=== PATIENT | female | born 1980 | race Caucasian/White ===

== ENCOUNTER → 2018-01-04 13:38 | Outpatient (CLI) | payer OTHER, SELFPAY ==
--- NOTE | 2018-01-04 13:41 | DI.US.S_ITS ---
PROCEDURE: US EXTREMITY NONVASC LOWER LT INDICATIONS: FOOT PAIN; POSSIBLE SOLIS'S NEUROMA TECHNIQUE: Real-time scanning was performed of the left inferior distal foot, with image documentation. COMPARISON: None. FINDINGS: Avascular, hypoechoic structures seen corresponding to the palpable abnormality within the left anterior distal foot region measuring 1.1 x 0.3 x 0.2 cm. IMPRESSION: Avascular hypoechoic soft tissue mass present corresponding to the palpable abnormality. Findings are nonspecific. If indicated, MRI without and with contrast could be performed for further characterization and localization (assuming that there is no contraindication). Dictated by: David CROSS Interpreted: Demetrius Feliciano MD on 01/04/2018 at 15:01 Approved by: Demetrius Feliciano M.D. on 01/04/2018 at 15:20
== END ==
PROVIDERS: Family Provider Family Medicine; PCP Family Medicine; Visit Provider Nurse Practitioner Family
DX: M79.672 Pain in left foot (principal); G57.62 Lesion of plantar nerve, left lower limb
CPT/HCPCS: 76882

== ENCOUNTER → 2018-01-19 10:49 | Outpatient (CLI) | payer OTHER, SELFPAY ==
[2018-01-19 12:06] LABS: BUN Creatinine Ratio 15.7 (6-22); Blood Urea Nitrogen 11 mg/dL (7-17); Estimated Glomerular Filt Rate > 60.0 mL/min (>60)
== END ==
PROVIDERS: Family Provider Family Medicine; PCP Family Medicine; Visit Provider Nurse Practitioner Family
DX: Z01.812 Encounter for preprocedural laboratory examination (principal)
CPT/HCPCS: 36415; 82565; 84520

== ENCOUNTER → 2018-01-26 17:04 | Outpatient (CLI) | payer OTHER, SELFPAY ==
--- NOTE | 2018-01-26 17:09 | DI.MRI.S_ITS ---
PROCEDURE: MR FOOT LT WO/W CON INDICATIONS: MOCTEZUMA'S NEUROMA LEFT FOOT TECHNIQUE: Noncontrast long-axis T1 spin echo and T2 fast spin echo with fat saturation, short-axis T1 spin echo with and without fat saturation, and short-axis T2 fast spin echo with fat saturation. After the administration of contrast, short-axis T1 spin echo with fat saturation through the forefoot. COMPARISON: [facility] [place], CR, XR FOOT 3+ VIEWS LEFT, 01/19/2018, 10:32. FINDINGS: Image quality: Excellent. Bones and joints: No bone marrow contusions or metatarsal stress fractures. The sesamoid bones appear in expected positions, without internal edema. No metatarsophalangeal joint degeneration. No intraosseous lesions. Soft tissues: No enhancing lesions between the metatarsal heads to suggest Moctezuma's neuromas. There is mild fluid between the first and second metatarsal heads raising possibility of low-grade bursitis. There is signal change involving the plantar soft tissues of the forefoot at the level of the second metatarsal head with T2 hyperintensity and minimal if any enhancement. There is also mild subcutaneous edema overlying the dorsal aspect of the second and third metatarsals. Marginal T2 hyperintensity involving the fifth metatarsal head however no definite enhancement. Mild posterior tibialis tenosynovitis and visualized hindfoot. IMPRESSION: Prominent signal change/edema involving the plantar soft tissues at the level of the second metatarsal head, with relatively absent enhancement. The appearance is nonspecific although differential includes infection, perineural fibrosis (such as ill-defined or atypical Moctezuma's neuroma), or developing adventitial bursitis. The flexor tendons appear grossly intact. Please correlate clinically. A discrete enhancing mass lesion is not seen. Low-grade intermetatarsal bursitis between the first and second metatarsal heads. Dictated by: Vinay Landaverde M.D. on 01/27/2018 at 9:59 Approved by: Vinay Landaverde M.D. on 01/27/2018 at 10:29
== END ==
PROVIDERS: Family Provider Family Medicine; PCP Family Medicine; Visit Provider Nurse Practitioner Family
DX: G57.62 Lesion of plantar nerve, left lower limb (principal); M77.52 Other enthesopathy of left foot and ankle
CPT/HCPCS: 73720; A9579

== ENCOUNTER → 2019-04-07 15:30 | Outpatient (CLI) | payer OTHER, SELFPAY ==
[2019-04-07 16:04] LABS: Add Manual Diff / Slide Review NO; Basophils Absolute Auto 0 /uL (0-100); Basophils Percent Auto 0.5 % (0-2); Eosinophils Absolute Auto 100 /uL (0-450); Eosinophils Percent Auto 0.9 % (2-4); Hematocrit 42.3 % (36-46); Hemoglobin 14.4 g/dL (12.0-16.0); Lymphocytes Absolute Auto 1400 /uL (1100-4500); Mean Corpuscular Hemoglobin 30.6 PG (26-34); Mean Corpuscular Volume 90.1 fL (80-100); Monocytes Absolute Auto 500 /uL (0-900); Monocytes Percent Auto 5.9 % (3-14); Neutrophils Absolute Auto 7000 /uL (1500-7000); Neutrophils Percent Auto 77.7 % (50-75); Platelet Count 240 X10^3/uL (150-400); Red Cell Distribution Width 13.3 % (11.6-14.8)
[2019-04-07 16:55] LABS: Alanine Aminotransferase 37 IU/L (<35); Albumin 4.8 g/dL (3.5-5.0); Albumin Globulin Ratio 1.8 (1.0-2.8); Alkaline Phosphatase 64 U/L (38-126); Aspartate Aminotransferase 27 IU/L (14-36); BUN Creatinine Ratio 16.3 (6-22); Bilirubin Total 0.8 mg/dL (0.2-1.3); Blood Urea Nitrogen 13 mg/dL (7-17); Calcium 9.9 mg/dL (8.4-10.2); Carbon Dioxide 30 mmol/L (22-32); Chloride 105 mmol/L (98-107); Estimated Glomerular Filt Rate > 60.0 mL/min (>60); Globulin 2.6 g/dL (1.7-4.1); Glucose 104 mg/dL (70-100); HEMOLYSIS < 15 (0-50); Potassium 4.5 mmol/L (3.4-5.1); Sodium 145 mmol/L (137-145); Total Protein 7.4 g/dL (6.3-8.2)
[2019-04-07 17:24] LABS: TSH w/ Reflex to FT4 1.38 uIU/mL (0.47-4.68)
== END ==
PROVIDERS: PCP Family Medicine; Visit Provider Family Medicine
DX: R49.0 Dysphonia (principal)
CPT/HCPCS: 36415; 80053; 84443; 85025

== ENCOUNTER → 2020-02-02 10:44 | Outpatient (CLI) | payer OTHER, SELFPAY ==
[2020-02-02 12:29] LABS: Erythrocyte Sedimentation Rate 5 MM/HR (0-20)
[2020-02-02 13:14] LABS: C-Reactive Protein Quant 1.1 mg/dL (<1.0); Rheumatoid Factor < 8.6 IU/mL (<12.0); Uric Acid 4.6 mg/dL (2.5-6.2)
[2020-02-03 14:29] LABS: SS A Ro Sjogrens Antibody < 0.2 AI (0.0-0.9); SS B La Sjogrens Antibody < 0.2 AI (0.0-0.9)
[2020-02-03 15:46] LABS: ANA Screen, IFA Negative (.)
[2020-02-05 08:07] LABS: Dilute Russell Viper Venom 57.1 sec (0.0-47.0); Dilute Russell Viper Venom Mix 41.8 sec (0.0-47.0); Lupus Reflex Interpretation Comment: (.); PTT-LA 34.8 sec (0.0-51.9)
[2020-02-07 15:36] LABS: HLA B27 Negative (.)
== END ==
PROVIDERS: PCP Family Medicine; Referring Provider Podiatrist; Visit Provider Podiatrist
DX: M79.672 Pain in left foot (principal)
CPT/HCPCS: 36415; 81374; 84550; 85598; 85613; 85651; 86038; 86140; 86235; 86430

== ENCOUNTER → 2020-03-12 17:07 | Outpatient (CLI) | payer OTHER, SELFPAY ==
--- NOTE | 2020-03-12 17:11 | DI.MG.S_ITS ---
BILATERAL DIGITAL SCREENING MAMMOGRAM 3D/2D WITH CAD: 03/12/2020 CLINICAL: Routine screening. Baseline exam. No prior exams were available for comparison. The tissue of both breasts is heterogeneously dense. This may lower the sensitivity of mammography. Current study was also evaluated with a Computer Aided Detection (CAD) system. No significant masses, calcifications, or other findings are seen in either breast. IMPRESSION: NEGATIVE There is no mammographic evidence of malignancy. A 2 year screening mammogram is recommended. This exam was interpreted at Station ID: [id number]. NOTE: For mammograms, a report in lay terms will be sent to the patient. Approximately 15% of breast malignancies will not be visualized mammographically. In the management of a palpable breast mass, a negative mammogram must not discourage biopsy of a clinically suspicious lesion. Electronically Signed By: Cayla thakkar/vitaly:03/20/2020 11:01:12 letter sent: Normal Exam ACR BI-RADS Category 1: Negative 3341F
== END ==
PROVIDERS: Family Provider Family Medicine; PCP Family Medicine; Referring Provider Family Medicine; Visit Provider Family Medicine
DX: Z12.31 Encounter for screening mammogram for malignant neoplasm of breast (principal)
CPT/HCPCS: 77063; 77067

== ENCOUNTER → 2020-10-30 11:52 | Outpatient (CLI) | payer OTHER, SELFPAY ==
[2020-10-30 13:45] LABS: TSH w/ Reflex to FT4 2.11 uIU/mL (0.47-4.68)
== END ==
PROVIDERS: Family Provider Family Medicine; PCP Family Medicine; Referring Provider Family Medicine; Visit Provider Family Medicine
DX: F31.81 Bipolar II disorder (principal)
CPT/HCPCS: 36415; 84443

== ENCOUNTER → 2021-03-07 12:40 | Outpatient (CLI) | payer OTHER, SELFPAY | PROVIDERS: Family Provider Family Medicine; PCP Family Medicine; Visit Provider Physician Assistant | DX: N34.3 Urethral syndrome, unspecified (principal) | CPT/HCPCS: 87086 ==

== ENCOUNTER → 2021-06-10 10:18 | Outpatient (CLI) | payer OTHER, SELFPAY ==
[2021-06-10 10:59] LABS: COVID19 -Nasal RAPID Negative (Negative)
== END ==
PROVIDERS: Family Provider Family Medicine; PCP Family Medicine; Visit Provider Obstetrics & Gynecology
DX: Z01.812 Encounter for preprocedural laboratory examination (principal); Z20.822 Contact with and (suspected) exposure to COVID-19
CPT/HCPCS: 87635

== ENCOUNTER 2021-06-11 08:29 | Day surgery (SDC) | payer OTHER, SELFPAY ==
[2021-06-11] MEDS: ACETAMINOPHEN 325 MG TABLET 975 MG PO (08:56)
[2021-06-11] MEDS: GABAPENTIN 300 MG CAPSULE PO (08:57)
[2021-06-11] MEDS: SCOPOLAMINE 1 PATCH TOP (08:57)
[2021-06-11 09:12] VITALS: BP 133/86; PULSE 70; RESP 16; TEMP 36.9; O2SAT 100; BMI 34.4
[2021-06-11] MEDS: LACTATED RINGERS 1,000 ML 42 ML IV (09:33)
--- NOTE | 2021-06-11 12:47 | SUR.PREOP ---
Pt discharged home at 1250 case cancelled , IV taken out, and will follow up with pt to reschedule.
== END 2021-06-11 08:30 | disposition home or self-care (01) ==
LOC: OR 08:30
PROVIDERS: Family Provider Family Medicine; PCP Family Medicine; Referring Provider Obstetrics & Gynecology; Visit Provider Obstetrics & Gynecology
DX: Z53.9 Procedure and treatment not carried out, unspecified reason (principal)
CPT/HCPCS: 57260; J2250; J2704

== ENCOUNTER → 2021-07-01 15:49 | Outpatient (CLI) | payer OTHER, SELFPAY ==
[2021-07-01 17:39] LABS: COVID19 -Nasal RAPID Negative (Negative)
== END ==
PROVIDERS: Family Provider Family Medicine; PCP Family Medicine; Visit Provider Obstetrics & Gynecology
DX: Z01.812 Encounter for preprocedural laboratory examination (principal); Z20.822 Contact with and (suspected) exposure to COVID-19
CPT/HCPCS: 87635

== ENCOUNTER 2021-07-02 06:28 | Day surgery (SDC) | payer OTHER, SELFPAY ==
[2021-06-27 07:54] VITALS: BMI 35.8
[2021-07-02] VITALS (11 sets, daily range): BP systolic 91–141; BP diastolic 34–88; PULSE 63–87; RESP 10–18; TEMP 36.3–37.3; O2SAT 91–99; BMI 35.8
[2021-07-02] MEDS: LACTATED RINGERS 1,000 ML 42 ML IV (06:54)
[2021-07-02] MEDS: ACETAMINOPHEN 325 MG TABLET 975 MG PO (07:34)
[2021-07-02] MEDS: SCOPOLAMINE 1 PATCH TOP (07:48)
[2021-07-02] MEDS: APREPITANT 40 MG CAPSULE PO (07:48)
--- NOTE | 2021-07-02 07:52 | PM.PREOP ---
Pre-operative Note COVID-19 COVID-19 status: Negative Result date/Date tested (Pos, Neg/Pending): 07/01/21 Criteria for continued procedure: Non-surgical alternatives not available or appropriate per current SOC Interval Note History & Physical reviewed/Exam performed by Physician: Yes Changes to H&P: No H&P completed within 30 days and has changed as indicated here:: 06/04/21
--- NOTE | 2021-07-02 08:24 | SUR.OPER ---
Lithotomy on padded OR bed, head on pillow, arms secured on padded arm boards at <90 degrees abduction. Legs secured in padded yellow fins stirrups.
[2021-07-02] MEDS: CLINDAMYCIN 900 MG/50 ML PIGGYBACK 50 MG IV (08:50)
[2021-07-02] MEDS: BUPIVACAINE 0.25% (PF) 30 ML, EPINEPHrine 0.15 MG INJ (09:02)
--- NOTE | 2021-07-02 10:05 | P.OP_ITS ---
Operative Date/Time/Diagnoses Date of procedure: 07/02/21 Time of procedure: 10:05 Pre-op diagnosis: Symptomatic cystocele and rectocele Symptomatic vaginal vault prolapse Post-op diagnosis: same Procedure & Clinicians Procedure: Procedures Operation Date: 07/02/21 07:45 Actual Procedure Side Surgeon p Anterior/Posterior Repair, sacrospinous ligament fixation Arabella Boyd MD Indications: Symptomatic cystocele and rectocele Symptomatic vaginal vault prolapse Surgeon: Arabella Boyd Experience Designer: Kandace Johnson Anesthesia Type: General and Local Operative Notes Findings: Third-degree cystocele Third-degree rectocele Third-degree vaginal vault prolapse Closure Type: primary Specimen(s): none Applied: catheter (To continuous drainage) and other (Vaginal packing) Estimated blood loss (mL): 50 Blood products transfused: none Procedure in detail: The patient was taken to the operating room where she was placed in the dorsal supine position. After adequate LMA general anesthesia was achieved, she was placed in the dorsal lithotomy position, and prepped and draped in the usual sterile fashion. Allis clamps were placed at the apex of the cystocele. 6 mL of half percent Marcaine with epinephrine were injected and an incision was made with a #10 blade between the 2 Allis clamps. Wide Allis clamps were placed on the midline of the cystocele approximately 5. 6 cc of 0.5% Marcaine with epinephrine were injected submucosally on either side of the midline. The mucosa was undermined using the Metzenbaum scissors and the mucosa incised in the midline moving the wide Allis clamps to the edges of the mucosa. The mucosa was dissected off the underlying fascia using an open moistened Ray-Ramon and a #10 blade. The fascia was reapproximated with 0 Vicryl with a series of horizontal mattress sutures. The excess vaginal mucosa was excised. The mucosa was closed using simple interrupted sutures with 2-0 Vicryl including the underlying fascia to close the space. The weighted speculum was removed from the vagina. Allis clamps were placed at the mucocutaneous junction at the introitus. 6 mL of half percent Marcaine with epinephrine were injected. An incision was made with a #10 blade between the 2 Allis clamps, and a triangular piece of skin and underlying subcutaneous tissue was removed. Allis clamps were placed in the midline of the rectocele. 10 mL of half percent Marcaine with epinephrine were injected submucosally. The mucosa was undermined using the Metzenbaum scissors and the mucosa incised in the midline, moving the wide Allis clamps to the m ucosal edges. The underlying fascia was dissected off of the mucosa using an open moistened Ray-Ramon and a #10 blade. The space surrounding the sacral spinous ligament was dissected out bluntly using 2 fingers. The sacral spinous ligament was identified. Using the Capio needle with 2 0 PDS, a stitch was placed 2 finger breaths away from the ischial spine into the sacral spinous ligament. This was then taken through the vaginal mucosa without going through full-thickness mucosa at the apex of the rectocele. This was tagged with a hemostat. The first 3 sutures reapproximating the fascia with 0 Vicryl were placed. The excess vaginal mucosa was excised. The first 2 sutures were placed on the mucosa using 2-0 vicryl including the underlying fascia to close the deadspace. The SSL suture was tied down, pulling the apex of the vagina posteriorly. The remainder of the mucosa was closed using 2 0 Vicryl with simple interrupted sutures, including the underlying fascia to close the s pace. On the perineum 0 Vicryl was used to reapproximate the levator muscle. The subcutaneous layer was closed with 2-0 Vicryl. The skin was closed with 3-0 chromic in a subcuticular fashion. Hemostasis was achieved. A Betadine moistened vaginal pack was placed into the vagina. A rectal exam was done and there were no sutures palpable in the rectum. The urine was clear. Sponge, lap, and instrument counts were correct ?-2. The patient tolerated the procedure well, was taken to PACU in stable condition. Complications: none Post-operative Condition: stable Disposition: PACU Plan for aftercare: To acute care after recovery
[2021-07-02] MEDS: OXYCODONE IR 5 MG TABLET PO (10:56)
--- NOTE | 2021-07-02 11:25 | PC.NURSE ---
Addendum entered by Josette Mishra R.N. 07/02/21 16:23: Patient denies pain, she is resting and tolerated her lunch. Resting comfortably. Addendum entered by Josette Mishra R.N. 07/02/21 12:58: Patient denies pain, she is eating her lunch and tolerating this well. Original Note: Patient up to floor around 1115- She had an a&p repair with mccall and packing present. Kristi pad in place with minimal bleeding. Given oxycodone post operatively and patient has a scope patch to the back of her r.ear. at bedside.
[2021-07-02] MEDS: ACETAMINOPHEN 325 MG TABLET 650 MG PO ×3 (11:35→22:56)
[2021-07-02] MEDS: LACTATED RINGERS 1,000 ML 100 ML IV ×2 (11:35→21:06)
[2021-07-02] MEDS: KETOROLAC 30 MG/ML VIAL IV ×3 (11:36→22:57)
[2021-07-02 12:24] LABS: Estimated Glomerular Filt Rate > 60.0 mL/min (>60)
[2021-07-02] MEDS: hydrOXYzine pamoate 25 MG CAPSULE PO (20:42)
[2021-07-02] MEDS: DOCUSATE 100 MG CAPSULE 200 MG PO (20:42)
[2021-07-02] MEDS: lamoTRIgine 100 MG TABLET 200 MG PO (21:04)
[2021-07-02] MEDS: IBUPROFEN 600 MG TABLET PO (22:56)
[2021-07-03] MEDS: ACETAMINOPHEN 325 MG TABLET 650 MG PO ×2 (05:14→11:29)
[2021-07-03] MEDS: IBUPROFEN 600 MG TABLET PO ×2 (05:14→11:29)
[2021-07-03] MEDS: KETOROLAC 30 MG/ML VIAL IV (05:14)
[2021-07-03 05:23] LABS: Add Manual Diff / Slide Review NO; Basophils Absolute Auto 0 /uL (0-100); Basophils Percent Auto 0.1 % (0-2); Eosinophils Absolute Auto 0 /uL (0-450); Hematocrit 39.6 % (36-46); Hemoglobin 13.2 g/dL (12.0-16.0); Lymphocytes Absolute Auto 1200 /uL (1100-4500); Mean Corpuscular HGB Conc 33.3 % (30-36); Mean Corpuscular Volume 90.1 fL (80-100); Monocytes Absolute Auto 800 /uL (0-900); Monocytes Percent Auto 4.7 % (3-14); Neutrophils Absolute Auto 15300 /uL (1500-7000); Neutrophils Percent Auto 88.2 % (50-75); Platelet Count 258 X10^3/uL (150-400); Red Blood Cell Count 4.39 X10^6/uL (4.0-5.2); Red Cell Distribution Width 13.2 % (11.6-14.8); White Blood Cell Count 17.4 X10^3/uL (4.5-11.0)
[2021-07-03 06:31] VITALS: BP 128/73; PULSE 79; RESP 18; TEMP 36.4; O2SAT 99
[2021-07-03 08:26] VITALS: BP 105/63; PULSE 64; RESP 20; TEMP 36.8; O2SAT 99
[2021-07-03] MEDS: DOCUSATE 100 MG CAPSULE 200 MG PO (08:55)
--- NOTE | 2021-07-03 09:01 | CM.DANOTE ---
DCP: Case received, EMR reviewed and met with patient. Introduced self and role. Was able to obtain information regarding patient's baseline activity level prior to surgery. DCP assessment completed with information currently available. Patient is a 41 year old female who admitted yesterday morning to the care of the ORDER MANAGEMENT SPECIALIST team. PCP: Dr. Conway. Payer: confirmed: [facility]. Patient came to the hospital via private vehicle for a surgical procedure. She had cystocele/rectocele secondary to genital prolapse, utervaginal prolapse, and pelvic pain. Met with patient in her room. She is pleasant, alert and oriented. Patient resides in [place] with her spouse, Gutierrez. She is independent at her baseline, and has 2 children, one is 14, the other is 18 and in college. She confirmed that her will be able to give her any assist she may need at home. P: DCP to continue to follow for any needs. Patient should be able to go home when she is medically stable. Aliya Sequeira RN/Dramatic Teacher Discharge Planning/Care Management Advanced directive, confirm from FAMILY Start: 07/02/21 11:47 Freq: Q24H Status: Active Protocol: Document 07/02/21 11:47 IVONE (Rec: 07/02/21 19:17 IVONE [id number]) Advance Directive, confirm on record Time 19:17 Person contacted Calli Becker Copy received No CM Discharge Assessment Start: 07/03/21 08:53 Freq: Status: Active Protocol: Document 07/03/21 08:53 VM (Rec: 07/03/21 09:00 VM [id number]) Discharge Planning Assessment Assigned Branch Services Manager lAiya Sequeira RN/Dramatic Teacher Advance Directives? No Advance Directives on File No History Provided By Patient,Medical Record Prior Living Arrangements House Household Members spouse Type of transporation used prior to Drives own vehicle admit Independent with ADL's Yes Is patient alert and oriented? Yes Caregiver for Another No Barriers to Discharge No Discharge Plan Home Transportation Arrangement Spouse Referrals Initiated None needed Whiteboard Updated in Patient Room with Yes name and ext. # of Branch Services Manager Review Status In Process Next Review Type Continued Stay Review Pre-Anesthesia Assessment Start: 06/26/21 15:07 Freq: Status: Active Protocol: Document 06/27/21 07:54 CAB (Rec: 06/26/21 15:27 CAB [id number]) Pre-Anesthesia Assessment Patient Information Reviewed Via Chart Review Comment COVID screen @ 07/01/21 Primary Care Provider Jerman Conway Seen Specialist in Last 12 Months Yes Specialist Seen Aircraft Maintenance Supervisor,Urologist,Other Primary Language [place] Public Health Outreach Worker Required No Height 5 ft 2 in Weight 196 lb Body Mass Index (BMI) 35.8 Barriers to Learning None Hx Anesthesia Reactions No Hx Family Anesthesia Reaction No Hx Malignant Hyperthermia No Hx Blood Transfusion Reaction No Anesthesia Review Requested No Macroeconomics Professor No alcohol intake current alcohol intake frequency 0-2 drinks per day Smoking Status Never smoker History of Falling (Recent or History of No ) Patient is completely paralyzed or No completely immobile Mental Status Oriented to own ability Hx Sleep Apnea No CPAP/BIPAP use not prescribed Currently Taking a Beta Erasto No Anti-Coagulant Therapy No Has a Skid Strapper No Cardiac Testing No Hx Pacemaker/ICD No Pacemaker Rep Required? No Urinary Catheter Present No Hx Urinary Self Catheterization No Diabetes No Patient No Lactating No Presence of External or Internal Medical No Devices Received a COVID vaccine? Yes Marital Status Lives With spouse Patient Discharge Plan Description Return Home Advance Directives? No
--- NOTE | 2021-07-03 12:43 | PC.NURSE ---
Pt is A&OX3 this a.m reporting pain well controlled 3-5/10 with movement. Pt without any beeding or spotting on alana pad. VSS, afebrile on RA. Guarde at bedside this a.m. removing vaginal packing and orders received to remove her mccall catheter. It is removed at 0915 and she voids by 1030, >300cc with 3ml PVR on the bladder scan. She has good po intake, denies nausea/vomitting. Pt is cleared for discharge this a.m. after lunch. She verblizes understanding of discharge activity, meds, s/sx of infection and worsening symptoms. She is escorted to private vehicle with her at 1240 this a.m.
--- NOTE | 2021-07-03 23:26 | P.PN_ITS ---
Subjective Subjective Date Patient Seen: 07/03/21 Time Patient Seen: 11:00 Interval history: Patient is a 41-year-old postop day # 1 status post anterior and posterior repair and sacral spinous ligament fixation. Her pain was well controlled overnight. Her May[place]a catheter was removed at 7:30 a.m. this morning. She voided 300 cc of clear yellow urine. She had a 3 cc postvoid residual. She has tolerated a diet. She is ambulating without assistance. Her vaginal packing was removed at 7:00 a.m.. Exam Vital Signs (past 8 hours): Oxygen Delivery Method Room Air Oxygen Flow Rate 0 Narrative Exam Narrative: Generally: Patient is sitting up in bed, no acute distress Lungs: Clear to auscultation bilaterally Cardiovascular: Regular rate and rhythm Perineum: Dry. Extremities: Negative Homans Objective Labs Result Diagrams: 07/03/21 04:43 07/02/21 12:05 Labs: Laboratory Results - last 24 hr 07/03/21 04:43 WBC 17.4 H RBC 4.39 Hgb 13.2 Hct 39.6 MCV 90.1 MCH 30.0 MCHC 33.3 RDW 13.2 Plt Count 258 Neut % (Auto) 88.2 H Lymph % (Auto) 7.0 L [place] % (Auto) 4.7 Eos % (Auto) 0.0 L Baso % (Auto) 0.1 Neut # (Auto) 79844 H Lymph # (Auto) 1200 [place] # (Auto) 800 Eos # (Auto) 0 Baso # (Auto) 0 PFSH Medical History (Updated 06/11/21 @ 09:57 by Arabella Boyd MD) Anxiety Bipolar 2 disorder Surgical History (Updated 06/26/21 @ 15:27 by Christi Brooke RN) History of dilation and curettage Hx of tonsillectomy Status post cholecystectomy Status post hysterectomy Family History Mother Breast CA Social History marital status: household members: spouse Smoking Status: Never smoker alcohol intake: current substance use type: does not use Assessment & Plan Post-op Postoperative Procedures: Procedures Operation Date: 07/02/21 07:45 Actual Procedure Side Surgeon p Anterior/Posterior Repair, sacrospinous ligament fixation Arabella Boyd MD Postoperative day: 1 Postoperative status: doing well Postoperative plan: discharge Time Spent With Patient Time with patient: 15-24 minutes Quality VTE Deep Vein Thrombosis/Pulmonary Embolism Present on Admission: No
== END 2021-07-03 12:40 | disposition home or self-care (01) ==
LOC: OR 06:29 → AC 06:31
PROVIDERS: Family Provider Family Medicine; PCP Family Medicine; Referring Provider Obstetrics & Gynecology; Visit Provider Obstetrics & Gynecology
PROC: (CPT 57282; principal; 2021-07-02 07:45)
DX: N99.3 Prolapse of vaginal vault after hysterectomy (principal); F41.9 Anxiety disorder, unspecified; F31.81 Bipolar II disorder
CPT/HCPCS: 57282; 57260; 36415; 82565; 85025; J0171; J1885; J8501

== ENCOUNTER → 2021-08-14 12:10 | Outpatient (CLI) | payer OTHER, SELFPAY ==
[2021-07-02 11:41] VITALS: BMI 35.8
== END ==
PROVIDERS: Family Provider Family Medicine; PCP Family Medicine; Visit Provider Obstetrics & Gynecology
DX: R31.9 Hematuria, unspecified (principal)
CPT/HCPCS: 87086

== ENCOUNTER → 2021-09-12 16:27 | Outpatient (CLI) | payer OTHER, SELFPAY ==
[2021-07-02 11:41] VITALS: BMI 35.8
== END ==
PROVIDERS: Family Provider Family Medicine; PCP Family Medicine; Visit Provider Obstetrics & Gynecology
DX: R31.9 Hematuria, unspecified (principal)
CPT/HCPCS: 87086

== ENCOUNTER → 2022-05-12 15:00 | Outpatient (CLI) | payer OTHER, SELFPAY ==
[2021-07-02 11:41] VITALS: BMI 35.8
--- NOTE | 2022-05-12 15:06 | DI.MG.S_ITS ---
BILATERAL DIGITAL SCREENING MAMMOGRAM 3D/2D WITH CAD: 05/12/2022 CLINICAL: Routine screening. Comparison is made to exam dated: 03/12/2020 mammogram - [facility]. Both breasts are heterogeneously dense, which may obscure small masses (category c / 51-75% glandular tissue). Current study was also evaluated with a Computer Aided Detection (CAD) system. No significant masses, calcifications, or other findings are seen in either breast. There has been no significant interval change. IMPRESSION: NEGATIVE There is no mammographic evidence of malignancy. A 1 year screening mammogram is recommended. Based on the Tyrer Cuzick model (a risk assessment model) the patient's lifetime risk is 5.8% and her 10 year risk is 0.8%. According to the ACR, ACS, and NCCN guidelines, an annual breast MRI exam along with mammogram is recommended if the patient's lifetime risk is 20% or greater. This exam was interpreted at Station ID: [id number]. NOTE: For mammograms, a report in lay terms will be sent to the patient. Approximately 15% of breast malignancies will not be visualized mammographically. In the management of a palpable breast mass, a negative mammogram must not discourage biopsy of a clinically suspicious lesion. Electronically Signed By: Kevon bird/vitaly:05/13/2022 07:49:36 letter sent: Normal Exam ACR BI-RADS Category 1: Negative 3341F
== END ==
PROVIDERS: Family Provider Family Medicine; PCP Family Medicine; Referring Provider Family Medicine; Visit Provider Family Medicine
DX: Z12.31 Encounter for screening mammogram for malignant neoplasm of breast (principal)
CPT/HCPCS: 77063; 77067

== ENCOUNTER → 2022-06-12 16:18 | Outpatient (CLI) | payer OTHER, SELFPAY ==
[2021-07-02 11:41] VITALS: BMI 35.8
--- NOTE | 2022-06-12 16:19 | DI.RAD.S_ITS ---
PROCEDURE: XR HIP W PEL IF DONE RT 2V INDICATIONS: rt hip pain TECHNIQUE: AP pelvis with lateral view(s) of the right hip(s). COMPARISON: None. FINDINGS: Bones: No fractures or dislocations. Pelvic ring appears intact. No suspicious bony lesions. Soft tissues: The visualized bowel gas pattern is normal. No suspicious soft tissue calcifications. IMPRESSION: No acute bony abnormality. No significant degenerative change. Dictated by: Jovanni oLu M.D. on 06/12/2022 at 17:02 Approved by: Jovanni Lou M.D. on 06/12/2022 at 17:03
== END ==
PROVIDERS: Family Provider Family Medicine; PCP Family Medicine; Referring Provider Family Medicine; Visit Provider Family Medicine
DX: M25.551 Pain in right hip (principal); G89.29 Other chronic pain
CPT/HCPCS: 73502

== ENCOUNTER → 2022-12-15 12:31 | Outpatient (CLI) | payer OTHER, SELFPAY ==
[2021-07-02 11:41] VITALS: BMI 35.8
[2022-12-16 16:01] LABS: Candida species Negative (Negative); Gardnerella vaginalis Negative (Negative); Trichomoas vaginalis Negative (Negative)
== END ==
PROVIDERS: Family Provider Family Medicine; PCP Family Medicine; Visit Provider Physician Assistant Medical
DX: R10.2 Pelvic and perineal pain (principal)
CPT/HCPCS: 87480; 87510; 87660

== ENCOUNTER → 2023-05-14 14:38 | Outpatient (CLI) | payer OTHER, SELFPAY ==
[2021-07-02 11:41] VITALS: BMI 35.8
--- NOTE | 2023-05-14 14:39 | DI.MG.S_ITS ---
BILATERAL DIGITAL SCREENING MAMMOGRAM 3D/2D WITH CAD: 05/14/2023 CLINICAL: Routine screening. Comparison is made to exams dated: 05/12/2022 mammogram and 03/12/2020 mammogram - [facility]. Both breasts are heterogeneously dense, which may obscure small masses (category c / 51-75% glandular tissue). Current study was also evaluated with a Computer Aided Detection (CAD) system. No significant masses, calcifications, or other findings are seen in either breast. There has been no significant interval change. IMPRESSION: NEGATIVE There is no mammographic evidence of malignancy. A 1 year screening mammogram is recommended. Based on the Tyrer Cuzick model (a risk assessment model) the patient's lifetime risk is 5.8% and her 10 year risk is 0.8%. According to the ACR, ACS, and NCCN guidelines, an annual breast MRI exam along with mammogram is recommended if the patient's lifetime risk is 20% or greater. This exam was interpreted at Station ID: [id number]. NOTE: For mammograms, a report in lay terms will be sent to the patient. Approximately 15% of breast malignancies will not be visualized mammographically. In the management of a palpable breast mass, a negative mammogram must not discourage biopsy of a clinically suspicious lesion. Electronically Signed By: Stiven browne/vitaly:05/14/2023 15:33:50 letter sent: Normal Exam ACR BI-RADS Category 1: Negative 3341F
== END ==
LOC: MAMMO 14:38
PROVIDERS: PCP Family Medicine; Referring Provider Family Medicine; Visit Provider Family Medicine
DX: Z12.31 Encounter for screening mammogram for malignant neoplasm of breast (principal); R92.333 Mammographic heterogeneous density, bilateral breasts
CPT/HCPCS: 77063; 77067

== ENCOUNTER → 2024-02-03 11:27 | Outpatient (CLI) | payer OTHER, SELFPAY ==
[2021-07-02 11:41] VITALS: BMI 35.8
[2024-02-03 13:42] LABS: Ferritin 47 ng/mL (6-137)
[2024-02-03 15:29] LABS: HEMOLYSIS 23 (0-50); Iron 125 ug/dL (37-170)
[2024-02-03 15:40] LABS: Percent Iron Saturation 37 % (15-50); Total Iron Binding Capacity 342 ug/dL (265-497); Transferrin 273 mg/dL (206-381)
== END ==
LOC: LAB 11:28
PROVIDERS: PCP Family Medicine; Referring Provider Psychiatry & Neurology Neurology; Visit Provider Psychiatry & Neurology Neurology
DX: R53.83 Other fatigue (principal)
CPT/HCPCS: 36415; 82728; 83540; 83550

== ENCOUNTER → 2024-05-16 14:57 | Outpatient (CLI) | payer OTHER, SELFPAY ==
[2021-07-02 11:41] VITALS: BMI 35.8
--- NOTE | 2024-05-16 14:58 | DI.MG.S_ITS ---
BILATERAL DIGITAL SCREENING MAMMOGRAM 3D/2D WITH CAD: 05/16/2024 CLINICAL: Routine screening. Family history of breast cancer. Comparison is made to exams dated: 05/14/2023 mammogram, 05/12/2022 mammogram, and 03/12/[address] mammogram - [facility]. The breasts are heterogeneously dense, which may obscure small masses (category c / 51-75% glandular tissue). Current study was also evaluated with a Computer Aided Detection (CAD) system. No significant masses, calcifications, or other findings are seen in either breast. There has been no significant interval change. IMPRESSION: NEGATIVE There is no mammographic evidence of malignancy. A 1 year screening mammogram is recommended. Based on the Tyrer Cuzick model (a risk assessment model) the patient's lifetime risk is 12.1% and her 10 year risk is 2.0%. According to the ACR, ACS, and NCCN guidelines, an annual breast MRI exam along with mammogram is recommended if the patient's lifetime risk is 20% or greater. This exam was interpreted at Station ID: [id number]. NOTE: For mammograms, a report in lay terms will be sent to the patient. Approximately 15% of breast malignancies will not be visualized mammographically. In the management of a palpable breast mass, a negative mammogram must not discourage biopsy of a clinically suspicious lesion. Electronically Signed By: Vaibhav ivan/vitaly:05/17/2024 08:12:23 letter sent: Normal Exam ACR BI-RADS Category 1: Negative
== END ==
PROVIDERS: PCP Family Medicine; Referring Provider Family Medicine; Visit Provider Family Medicine
DX: Z12.31 Encounter for screening mammogram for malignant neoplasm of breast (principal); Z80.3 Family history of malignant neoplasm of breast; R92.333 Mammographic heterogeneous density, bilateral breasts
CPT/HCPCS: 77063; 77067

== ENCOUNTER → 2024-09-26 09:11 | Outpatient (CLI) | payer OTHER, SELFPAY ==
[2021-07-02 11:41] VITALS: BMI 35.8
[2024-09-26 09:48] LABS: Add Manual Diff / Slide Review NO; Basophils Absolute Auto 0 /uL (0-100); Basophils Percent Auto 0.5 % (0-2); Eosinophils Absolute Auto 200 /uL (0-450); Eosinophils Percent Auto 2.5 % (2-4); Hematocrit 43.4 % (36-46); Hemoglobin 14.7 g/dL (12.0-16.0); Lymphocytes Absolute Auto 1800 /uL (1100-4500); Lymphocytes Percent Auto 27.4 % (25-40); Mean Corpuscular HGB Conc 33.8 % (30-36); Mean Corpuscular Hemoglobin 30.8 PG (26-34); Mean Corpuscular Volume 91.1 fL (80-100); Monocytes Absolute Auto 500 /uL (0-900); Neutrophils Absolute Auto 4100 /uL (1500-7000); Neutrophils Percent Auto 62.6 % (50-75); Platelet Count 212 X10^3/uL (150-400); Red Blood Cell Count 4.76 X10^6/uL (4.0-5.2); Red Cell Distribution Width 12.7 % (11.6-14.8); White Blood Cell Count 6.5 X10^3/uL (4.5-11.0)
[2024-09-26 09:57] LABS: Hemoglobin A1C% w Est Avg Glu 4.7 % (4.0-6.0)
[2024-09-26 10:05] LABS: Alanine Aminotransferase 35 IU/L (<35); Albumin Globulin Ratio 2.5 (1.0-2.8); Alkaline Phosphatase 56 U/L (38-126); Aspartate Aminotransferase 27 IU/L (14-36); Bilirubin Total 1.2 mg/dL (0.2-1.3); Blood Urea Nitrogen 10 mg/dL (7-17); Calcium 9.6 mg/dL (8.4-10.2); Carbon Dioxide 27 mmol/L (22-32); Chloride 104 mmol/L (98-107); Cholesterol 161 mg/dL (140-199); Estimated Glomerular Filt Rate > 60 mL/min (>60); Glucose 84 mg/dL (70-99); HDL Cholesterol 43 mg/dL (40-60); HEMOLYSIS < 15 (0-50); LDL Cholesterol Calculated 96 mg/dL (<100); Potassium 4.5 mmol/L (3.4-5.1); Sodium 140 mmol/L (137-145); Triglycerides 112 mg/dL (35-150)
== END ==
PROVIDERS: PCP Family Medicine; Referring Provider Family Medicine; Visit Provider Family Medicine
DX: N95.2 Postmenopausal atrophic vaginitis (principal); F41.9 Anxiety disorder, unspecified; F31.81 Bipolar II disorder; R73.01 Impaired fasting glucose
CPT/HCPCS: 36415; 80053; 80061; 83036; 84443; 85025

== ENCOUNTER → 2024-11-08 09:16 | Outpatient (CLI) | payer OTHER, SELFPAY ==
[2021-07-02 11:41] VITALS: BMI 35.8
[2024-11-08 09:58] LABS: Add Manual Diff / Slide Review NO; Hematocrit 43.5 % (36-46); Hemoglobin 15.0 g/dL (12.0-16.0); Lymphocytes Absolute Auto 1800 /uL (1100-4500); Mean Corpuscular HGB Conc 34.4 % (30-36); Mean Corpuscular Hemoglobin 31.0 PG (26-34); Mean Corpuscular Volume 90.2 fL (80-100); Platelet Count 225 X10^3/uL (150-400)
[2024-11-08 10:07] LABS: Alanine Aminotransferase 49 IU/L (<35); Albumin 4.9 g/dL (3.5-5.0); Albumin Globulin Ratio 2.0 (1.0-2.8); Alkaline Phosphatase 63 U/L (38-126); Globulin 2.5 g/dL (1.7-4.1); HEMOLYSIS 21 (0-50); Total Protein 7.4 g/dL (6.3-8.2)
[2024-11-08 10:45] LABS: TSH w/ Reflex to FT4 1.92 uIU/mL (0.47-4.68)
== END ==
PROVIDERS: PCP Family Medicine; Referring Provider Physician Assistant; Visit Provider Physician Assistant
DX: R19.7 Diarrhea, unspecified (principal)
CPT/HCPCS: 80076; 84443; 85025

== ENCOUNTER → 2024-11-09 17:27 | Outpatient (CLI) | payer OTHER, SELFPAY ==
[2021-07-02 11:41] VITALS: BMI 35.8
[2024-11-09 19:46] LABS: Clostridium Difficile Tox PCR Negative for C. diff (Negative)
== END ==
LOC: LAB 17:28
PROVIDERS: PCP Family Medicine; Referring Provider Physician Assistant; Visit Provider Physician Assistant
DX: R19.7 Diarrhea, unspecified (principal)
CPT/HCPCS: 83993; 87493

== ENCOUNTER → 2024-12-26 13:01 | Outpatient (CLI) | payer OTHER, SELFPAY ==
[2021-07-02 11:41] VITALS: BMI 35.8
[2024-12-28 10:39] LABS: E coli Shiga Toxin EIA Negative (Negative)
[2024-12-28 11:36] LABS: Salmonella/Shigella Screen Final report (.)
== END ==
PROVIDERS: PCP Family Medicine; Referring Provider Family Medicine; Visit Provider Family Medicine
DX: R19.7 Diarrhea, unspecified (principal)
CPT/HCPCS: 87045